=== PATIENT | male | born 1995 | race Two or more races ===

== ENCOUNTER 2024-06-20 11:04 | Emergency (ER) | payer MEDICAID, SELFPAY ==
[2024-06-20 11:05] VITALS: BMI 19.1
[2024-06-20 11:21] VITALS: BP 126/80; PULSE 73; RESP 16; TEMP 36.8; O2SAT 97; BMI 22.5
--- NOTE | 2024-06-20 11:26 | XR_ITS ---
Examination: CT abdomen and pelvis without contrast. Coronal 3-D reconstructions. Sagittal 2-D reconstructions. Date and time of exam:June 20, 2024 1142 hrs. Indications: Onset bilateral flank pain back pain beginning 3 days ago CTDI: vol (mGy): 5.9 DLP: (mGycm): 308 Technique: Axial images of the abdomen have been obtained, 3 mm slice thickness Intravenous contrast material has not been administered. Low dose protocols were performed. One or more of the following dose reduction techniques were used; automated exposure control, adjustment of the mA and/or KV according to patient size, use of iterative reconstruction technique. Findings: No focal liver or splenic lesions Contracted gallbladder No pancreatic or adrenal mass No renal or ureteral calculi, no hydronephrosis Aorta normal size No bowel obstruction Small lymph nodes in the right lower mesentery 5 mm fat-containing umbilical hernia Colonic diverticulosis, no diverticulitis Urinary bladder contracted No pericecal inflammatory change Small old bone density at the anterior superior margin L2 Impression: No renal or ureteral calculi, no hydronephrosis No CT findings of appendicitis bowel obstruction or diverticulitis
--- NOTE | 2024-06-20 11:26 | PD.EDRME ---
Rapid Medical Screening Exam RME Arrival date/time: 06/20/24 11:04 29-year-old male presents emergency department complains of back pain/flank pain Chief Complaint: Abdominal Pain Vital signs: Vital Signs Temperature 98.2 F 06/20/24 11:21 Pulse Rate 73 06/20/24 11:21 Respiratory Rate 16 06/20/24 11:21 Blood Pressure 126/80 06/20/24 11:21 Pulse Oximetry (%) 97 06/20/24 11:21 Oxygen Delivery Method Room Air 06/20/24 11:21
[2024-06-20 11:58] LABS: Collection Type, Urine Clean Catch; Squamous Epithelial Cell,Urine 0 /hpf (0-5)
[2024-06-20 12:04] LABS: Bilirubin,Urine Negative (Negative); Blood,Urine Negative (Negative); Clarity,Urine Clear (Clear/Hazy); Color,Urine Lt-Yellow (Lt Yel-Yel); Culture Indicated,Urine Not Indicated; Glucose, Urine Negative (Negative); Ketones,Urine Negative (Negative); Leukocyte Esterase,Urine Negative (Negative); Nitrite,Urine Negative (Negative); Protein,Urine Negative (Neg - Trace); RBC,Urine 1 /hpf (0-3); Specific Gravity,Urine 1.025 (1.001-1.035); Urobilinogen,Urine Negative mg/dL (0.0-1.0); WBC,Urine < 1 /hpf (0-5)
--- NOTE | 2024-06-20 12:33 | EDNOTE_ITS ---
ED Abdominal Pain RME/HPI General Chief Complaint: Abdominal Pain Stated complaint: abdominal pain right and left, flank pain Time seen by provider: 06/20/24 12:33 Arrival date/time: 06/20/24 11:04 29-year-old male presents emergency department today complaints of left-sided back pain and flank pain patient reports no fever nausea or vomiting no dysuria no hematuria. Patient does report pain worse with movement Limitations: no limitations RME / HPI RME / HPI narrative: 06/20/24 11:04 29-year-old male presents emergency department complains of back pain/flank pain Related Data Previous Rx's ?Medication ?Instructions ?Recorded cetirizine 10 mg capsule (Zyrtec) 10 mg PO QDAY PRN allergy symptoms 10/11/23 #30 caps cyclobenzaprine 10 mg tablet 10 mg PO TID PRN muscle spasm 10 06/20/24 days #30 tab-caps ibuprofen 600 mg tablet 600 mg PO Q6H #30 tabs 06/20/24 Allergies Allergy/AdvReac Type Severity Reaction Status Date / Time No Known Allergies Allergy Verified 10/11/23 11:31 Review of Systems Review of Systems Systems Reviewed: All systems reviewed, normal except as documented Constitutional Constitutional: Reports system reviewed and no additional complaints, except as documented, Denies fever(s) and Denies headache(s) Eyes Eyes: Reports system reviewed and no additional complaints, except as documented and Denies blurry vision ENT Ears, Nose, Mouth, and Throat: Reports system reviewed and no additional complaints, except as documented, Denies headache(s), Denies nasal congestion and Denies nasal discharge Cardiovascular Cardiovascular: Reports system reviewed and no additional complaints, except as documented, Denies chest pain and Denies dyspnea Respiratory Respiratory: Reports system reviewed and no additional complaints, except as documented, Denies chest congestion, Denies cough and Denies dyspnea Gastrointestinal Gastrointestinal: Reports system reviewed and no additional complaints, except as documented, Denies abdominal pain, Denies loose stools, Denies vomiting and Reports other (Left flank pain) Genitourinary Genitourinary: Reports system reviewed and no additional complaints, except as documented, Denies difficulty urinating, Reports flank pain and Denies hematuria Musculoskeletal Musculoskeletal: Reports system reviewed and no additional complaints, except as documented and Reports back pain (Back pain worse with movement left side) Integumentary/Breasts Skin/Breast: Reports system reviewed and no additional complaints, except as documented and Denies rash Neurologic Neurologic: Reports system reviewed and no additional complaints, except as documented, Reports as per HPI and Denies headache(s) Past Medical History Social History SMOKING STATUS: Never smoker ED Exam General Limitations: Present no limitations General appearance: Present alert and in no apparent distress Head Head exam: Present atraumatic, normocephalic and normal inspection Eye Eye exam: Present normal appearance, PERRL and EOMI; Absent conjunctival injection ENT ENT exam: Present normal exam, normal oropharynx and mucous membranes moist Neck Neck exam: Present normal inspection, full ROM and trachea midline Chest Chest inspection: Present normal inspection and symmetric chest wall rise Respiratory Respiratory exam: Present normal lung sounds bilaterally; Absent respiratory distress Cardiovascular Cardiovascular exam: Present regular rate, normal rhythm and normal heart sounds Abdominal Exam Abdominal exam: Present soft and normal bowel sounds; Absent distention, tenderness, guarding, rebound or rigidity Extremities Exam Extremities exam: Present normal inspection and full ROM Back Exam Back exam: Present normal inspection and full ROM Neurological Exam Neurological exam: Present alert, oriented X3 and CN II-XII intact Psychiatric Psychiatric exam: Present normal affect and normal mood Skin Skin exam: Present warm, dry, intact and normal color Course Quality Measures none Orders Category Date Time Status CT abdomen pelvis wo con Stat Exams 06/20/24 11:26 Completed CBC Stat Lab 06/20/24 12:34 Completed Comprehensive Metabolic Panel Stat Lab 06/20/24 12:34 Completed Lipase Stat Lab 06/20/24 12:34 Completed UA, C/S IF [Urinalysis, C/S if Indicated] Stat Lab 06/20/24 11:15 Completed Vital Signs Vital signs: Vital Signs Temperature 98.2 F 06/20/24 11:21 Pulse Rate 73 06/20/24 11:21 Respiratory Rate 16 06/20/24 11:21 Blood Pressure 126/80 06/20/24 11:21 Pulse Oximetry (%) 97 06/20/24 11:21 Oxygen Delivery Method Room Air 06/20/24 11:21 O2 saturation 97% room air within normal limits Abdominal Pain MDM MDM Narrative MDM Narrative:: 29-year-old male presents emergency department today complaints of left-sided back pain and flank pain patient reports no fever nausea or vomiting no dysuria no hematuria. Patient does report pain worse with movement On exam patient well-appearing patient does not appear ill or toxic and in no acute distress Imaging as well as lab work obtained no acute emergent findings noted Patient discharged home in no distress to follow-up with primary care doctor in the next 24 to 48 hours and for any worsening symptoms to return to the ER immediately Patient data External records reviewed:: [facility] previous records Clinical information provided by:: patient Social determinants that could affect healthcare access:: none Patient has the following chronic illnesses:: None How is presenting disease/condition affected by chronic disease/condition?: no chronic disease Evaluation data The following diagnostics were reviewed and interpreted by me:: lab results and radiology exam(s) Lab and/or radiology exams considered but not ordered:: Labs radiology obtained Interpretation Summary: Reviewed by me Medications / Prescriptions Medications or Prescriptions considered but not ordered:: Given Medication administrations:: Given Consultations Consultation(s) initiated? (list below): No Diagnosis Differential diagnosis abdominal pain: abdominal pain, diverticulitis, gastroenteritis, pancreatitis and other (Flank pain, back pain) Most likely diagnosis given after review of the tests above:: Back pain Admission Indicated Admission indicated?: not indicated Admission Request Was there a request for admission?: No Disposition Plan Disposition Plan: Discharge Discharge Attestation Discharge Attestation: The patient and all family members were given an opportunity to ask questions and understood the discharge instructions. Discharge instructions specifically effects, indications for sooner follow up or return to the emergency department, and the expected course of current diagnosis. Patient condition: Stable Discharge Plan Plan Patient Disposition: HOME (Self Care) Disposition Comment: Stable Prescriptions/Referrals Prescriptions/Med Rec: New cyclobenzaprine 10 mg tablet 10 mg PO TID PRN (Reason: muscle spasm) 10 Days Qty: 30 0RF ibuprofen 600 mg tablet 600 mg PO Q6H Qty: 30 0RF No Action Zyrtec 10 mg capsule 10 mg PO QDAY PRN (Reason: allergy symptoms) Qty: 30 0RF Referrals: No Primary/Family,Physician [Primary Care Provider] - 06/21/24 Problem List Clinical Impression: Back pain Patient/Caregiver Discharge Instructions Education Materials: ED Back Care Tips Additional Instructions: Please follow up with your primary care doctor in the next 24-48hrs for any worsening symptoms return here immediately Print Language: Indonesian Stand Alone Forms: Mary Award Info., Work/School Release, Patient Portal Info Letter PA/HOLLIE Supervising Physician PA/MAITRE D' Supervising Physician: Dr Bryant
[2024-06-20 13:13] LABS: Basophils # (Auto) 0.1 Thou/mm3 (0.0-0.2); Basophils % (Auto) 1 % (0-2.5); Eosinophils # (Auto) 0.2 Thou/mm3 (0.0-0.5); Eosinophils % (Auto) 3 % (0-10); Hematocrit 45.4 % (41.0-53.0); Hemoglobin 14.8 g/dL (13.5-16.0); Immature Granulocytes % (Auto) 0 % (0-0); Immature Granulocytes Auto 0.02 Thou/mm3 (0.00-0.00); Lymphocytes # (Auto) 1.8 Thou/mm3 (1.0-4.8); Lymphocytes % (Auto) 31 % (10-50); Mean Corpuscular HGB Conc 32.6 g/dl (31.0-37.0); Mean Corpuscular Hemoglobin 26.1 pg (25.0-35.0); Mean Corpuscular Volume 80 fL (80-100); Monocytes # (Auto) 0.6 Thou/mm3 (0.0-0.8); Monocytes % (Auto) 10 % (0-12); Neutrophils # (Auto) 3.2 Thou/mm3 (1.8-7.7); Neutrophils % (Auto) 55 % (37-80); Nucleated Red Blood Cell % 0 /100 WBC (0); Platelet Count 266 Thou/mm3 (140-440); RDW Standard Deviation 37.2 fL (35.1-43.9); Red Blood Count 5.66 Miln/mm3 (4.50-5.90); White Blood Count 5.9 Thou/mm3 (3.8-10.6)
[2024-06-20 13:26] LABS: Alanine Aminotransferase 13 U/L (10-49); Albumin, Serum 4.8 gm/dL (3.5-5.0); Albumin/Globulin Ratio 1.8 (1.2-2.2); Alkaline Phosphatase 70 U/L (46-116); Anion Gap 7 (7-16); Aspartate Amino Transferase 29 U/L (0-34); BUN/Creatinine Ratio 20 Ratio (12-20); Bilirubin,Total 0.8 mg/dL (0.3-1.2); Blood Urea Nitrogen 20 mg/dL (9-23); Calcium 9.6 mg/dL (8.3-10.6); Calcium (Corrected) 9.6 mg/dL (8.5-10.1); Chloride 104 mMol/L (98-107); Estimated Creatinine Clearance 103.5 mL/min (>60); Globulin 2.6 gm/dL (2.3-3.5); Glucose 89 mg/dL (74-106); Lipase 34 U/L (12-53); Osmolality,Calculated 281 (275-295); Sodium 140 mMol/L (136-145); Total Protein 7.4 gm/dL (5.7-8.2); eGFR > 60 See Note
== END 2024-06-20 14:09 | disposition home or self-care (01) ==
PROVIDERS: Nurse Practitioner Primary Care; Emergency Provider Emergency Medicine
DX: M54.9 Dorsalgia, unspecified (principal); R10.9 Unspecified abdominal pain
CPT/HCPCS: 36415; 74176; 80053; 81001; 83690; 85025; 99284